=== PATIENT | female | born 1995 | race Hispanic/Latino ===

== ENCOUNTER 2024-04-09 05:57 | Day surgery (SDC) | payer MEDICAID ==
[2024-04-08 12:08] LABS: BASOPHILS # (AUTO) 0.02 K/uL (0.00-0.20); BASOPHILS % (AUTO) 0.2 % (0.0-5.0); EOSINOPHILS # (AUTO) 0.05 K/uL (0.00-0.70); EOSINOPHILS % (AUTO) 0.6 % (0.0-8.0); HEMATOCRIT 41.3 % (36-48); IMMATURE GRANULOCYTE ABSOLUTE 0.02 K/uL (0-1); LYMPHOCYTES # (AUTO) 2.3 K/uL (1.0-4.8); LYMPHOCYTES % (AUTO) 27.2 % (21.0-51.0); MEAN CORPUSCULAR HEMOGLOBIN 28.2 pg (27.0-33.0); MEAN CORPUSCULAR HGB CONC 32.7 g/dL (32.0-36.0); MEAN CORPUSCULAR VOLUME 86.2 fL (79-99); MONOCYTES # (AUTO) 0.4 K/uL (0.1-1.0); MONOCYTES % (AUTO) 4.7 % (3.0-13.0); NEUTROPHILS # (AUTO) 5.7 K/uL (1.8-7.7); NEUTROPHILS % (AUTO) 67.1 % (40.0-77.0); PLATELET COUNT (AUTO) 267 K/uL (130-400); RED BLOOD CELL COUNT(AUTO) 4.79 MIL/uL (4.00-5.50); RED CELL DISTRIBUTION WIDTH 14.5 % (11.0-15.5); WHITE BLOOD COUNT (AUTO) 8.5 K/uL (4.8-10.8)
[2024-04-08 12:25] VITALS: BP 127/80; PULSE 77; RESP 16
[~2024-04-09] VITALS: Ht 162.6 cm; Wt 92.5 kg
[2024-04-09] VITALS (13 sets, daily range): BP systolic 112–135; BP diastolic 56–83; PULSE 61–99; RESP 14–18
[2024-04-09] MEDS: CEFAZOLIN SODIUM 2 GM VIAL ONE (06:40)
[2024-04-09] MEDS: LACTATED RINGERS 1000ML 1,000 ML IV ONE (06:40)
[2024-04-09] MEDS ORDERED: HYDROMORPHONE 1 MG INJ ONE (07:01)
[2024-04-09] MEDS ORDERED: FAMOTIDINE 20MG VIAL IV ONE (07:01)
[2024-04-09] MEDS ORDERED: PHENYLEPHRINE HCL 10 MG/ML 1ML VIAL IV ONE (07:08)
[2024-04-09] MEDS ORDERED: LIDOCAINE PF 100MG/5ML (2%) SYRINGE 5ML ONE (07:10)
[2024-04-09] MEDS ORDERED: GLYCOPYRROLATE 0.2 MG/ML 5 ML VIAL ONE (07:10)
[2024-04-09] MEDS ORDERED: ONDANSETRON 4MG INJ ONE (07:10)
[2024-04-09] MEDS ORDERED: PROPOFOL 10 MG/ML 20ML VIAL IV ONE (07:11)
[2024-04-09] MEDS ORDERED: ROCURONIUM BROMIDE 10MG/1ML 5ML VL ONE (07:11)
[2024-04-09] MEDS ORDERED: NEOSTIGMINE METHYLSULFATE 1MG/ML IV ONE (07:11)
[2024-04-09] MEDS ORDERED: FENTANYL CITRATE PF 50 MCG/1 ML 2ML VIAL ONE (07:11)
[2024-04-09] MEDS ORDERED: MIDAZOLAM HCL 1 MG/ML 2ML VIAL ONE (07:15)
[2024-04-09] MEDS: CEFAZOLIN SODIUM 2 GM VIAL IVPB ONE (08:40)
[2024-04-09] MEDS ORDERED: BUPIVACAINE/PF 0.25% 30ML VIAL IJ ONE (09:03)
== END 2024-04-09 11:35 | disposition home or self-care (01) ==
LOC: DAH 05:57
PROVIDERS: ATTEND Obstetrics & Gynecology
DX: Z30.2 Encounter for sterilization (principal); N81.2 Incomplete uterovaginal prolapse; K21.9 Gastro-esophageal reflux disease without esophagitis; Z79.01 Long term (current) use of anticoagulants; Z79.899 Other long term (current) drug therapy
CPT/HCPCS: 84703; 85025; 86850; 86900; 86901; 36415; 58670; A6260; A4510; A4600; A4663; A4351; A4606; A4215 ×2; J7120; S0028; J3010; J1170; J0665; J3490 ×4; J2250; J2405; J2710; J2371; J0690 ×2; C1769 ×3; G0168; A4223; A4213; A4222; A4221; A4335; J2001; J2704